=== PATIENT | female | born 1960 | race Caucasian/White ===

== ENCOUNTER 2018-02-18 08:49 | Outpatient (CLI) | payer OTHER ==
[~2018-02-18 08:49] MED LIST: CATAFLAM50 MG PO; NABUMETONE500 MG PO; PERCOCET 5/3251 TAB PO; TOPROL XL50 MG PO
== END 2018-02-18 08:51 | disposition home or self-care (01) ==
LOC: SONOGRAMA 08:49
DX: E04.1 Nontoxic single thyroid nodule (principal)

== ENCOUNTER 2018-09-30 09:26 | Day surgery (SDC) | payer OTHER | END 2018-09-30 13:25 | disposition home or self-care (01) | LOC: AMB-ENDOS 09:26 | DX: D13.1 Benign neoplasm of stomach (principal); K44.9 Diaphragmatic hernia without obstruction or gangrene ==

== ENCOUNTER 2021-12-19 12:46 | Outpatient (CLI) | payer OTHER | END 2021-12-19 12:47 | disposition home or self-care (01) | LOC: SONOGRAMA 12:46 | PROVIDERS: ATTEND Pathology Anatomic Pathology & Clinical Pathology | DX: D34 Benign neoplasm of thyroid gland (principal); E04.9 Nontoxic goiter, unspecified; E04.2 Nontoxic multinodular goiter ==